=== PATIENT | male | born 1955 | race Caucasian/White ===

== ENCOUNTER 2016-06-22 00:44 | Inpatient (IN) | payer OTHER ==
[~2016-06-22] VITALS: Ht 180.3 cm; Wt 96.2 kg
[~2016-06-22 00:44] MED LIST: AMBIEN5 MG PO; AMLODIPINE BESYL5 MG PO; ANTI-ITCH28 GM TP; ASPIR 8181 M1 PO; ASPIRIN81 M1 PO; COLACE100 MG PO; COUMADIN10 MG PO; COUMADIN5 MG PO; CYANOCOBALAM1000 MCG PO; GLUCOPHAGE1000 MG PO; GLYBURIDE5 MG PO; KLOR-CON M2020 MEQ PO; KOMBIGLYZE XR1 EAC1 PO; LIPITOR20 MG PO; LISINOPRIL10 MG PO; LISINOPRIL5 MG PO; LO-DOSE ASPIRIN81 M1 PO; LO-DOSE ASPIRIN81 M2 PO; LOMOTIL TABLET1 EACH PO; LOPRESSOR25 MG PO; LYRICA100 MG PO; LYRICA150 MG PO; METFORMIN HCL1000 MG PO; METOPROLOL TART25 MG PO; NIACIN500 M1 PO; NORVASC10 M1 PO; NORVASC5 MG PO; OMEPRAZOLE20 M2 PO; OMEPRAZOLE20 MG PO; OMEPRAZOLE40 M1 PO; PERCOCET 10/1 TABLET PO; PLAVIX75 MG PO; PRILOSEC20 MG PO; RANITIDINE HCL150 MG PO; SILVADENE20 GM TP; ST. JOSEPH ASPI81 MG PO; TANZEUM30 MG/0.5 SC; VANCOCIN 250 M250 MG PO; VITAMIN B-12500 MC5 SL; VITAMIN B-6100 MG PO; WARFARIN SODIU2.5 MG PO; WARFARIN SODIUM5 MG PO; ZANTAC150 MG PO; ZOLPIDEM TARTRAT5 MG PO
[2016-06-22 01:38] LABS: HEMATOCRIT 27.6 % (38.0-50.0); MCH 24.6 PG (29.0-34.0); MCHC 30.8 G/DL (30.0-36.0); RBC DIS.WIDTH-CV 20.3 % (11.8-14.6); RED BLOOD COUNT 3.45 M/uL (4.00-5.50)
[2016-06-22 01:41] LABS: PLATELET COUNT 223 K/uL (156-360); WHITE BLOOD COUNT 6.1 K/uL (4.1-10.2)
[2016-06-22 01:47] LABS: CHLORIDE 105 mEq/L (99-109); POTASSIUM 3.6 mEq/L (3.7-5.4); SODIUM 138 mEq/L (136-147)
[2016-06-22 01:48] LABS: INTER. NORMALIZED RATIO 1.1; PROTHROMBIN TIME 11.4 (9.2-11.2)
[2016-06-22 01:49] LABS: GLUCOSE 148 mg/dL (70-99)
[2016-06-22 01:50] LABS: ANION GAP 14 MEQ/L (2-14)
[2016-06-22 01:51] LABS: TOTAL BILIRUBIN 0.8 mg/dL (0.0-1.0)
[2016-06-22 01:52] LABS: ALKALINE PHOSPHATASE 91 IU/L (3-129)
[2016-06-22 01:53] LABS: GFR ESTIMATE (CALCULATED) > 59 mL/min/
[2016-06-22 01:54] LABS: DIRECT BILIRUBIN 0.3 mg/dL (0.0-0.3); UREA NITROGEN (BUN) 13 mg/dL (9-23)
[2016-06-22 01:56] LABS: LIPASE 26 U/L (1.0-51.0)
[2016-06-22 05:00] VITALS: BP 112/78
[2016-06-22 05:57] LABS: HEMATOCRIT 24.3 % (38.0-50.0); MCH 25.8 PG (29.0-34.0); MCHC 31.7 G/DL (30.0-36.0); MCV 81.5 FL (86-99); RBC DIS.WIDTH-CV 19.7 % (11.8-14.6); RBC DIS.WIDTH-SD 56.5 % (39-53); RED BLOOD COUNT 2.98 M/uL (4.00-5.50)
[2016-06-22 06:06] LABS: WHITE BLOOD COUNT 4.2 K/uL (4.1-10.2)
[2016-06-22 07:10] LABS: MEAN PLAT.VOLUME 11.3 uM^3 (9.0-12.4)
[2016-06-22 07:13] LABS: PLATELET COUNT 141 K/uL (156-360)
[2016-06-22 07:50] VITALS: BP 113/74
[2016-06-22 13:17] LABS: POINT-OF-CARE METER ID UU13113747
[2016-06-22 13:30] LABS: HEMATOCRIT 25.9 % (38.0-50.0); MCH 26.2 PG (29.0-34.0); MCV 81.7 FL (86-99); MEAN PLAT.VOLUME 10.3 uM^3 (9.0-12.4); PLATELET COUNT 117 K/uL (156-360); RBC DIS.WIDTH-CV 18.5 % (11.8-14.6); RED BLOOD COUNT 3.17 M/uL (4.00-5.50); WHITE BLOOD COUNT 4.1 K/uL (4.1-10.2)
[2016-06-22 17:07] LABS: POINT-OF-CARE METER ID UU13113725
[2016-06-22 17:17] LABS: HEMATOCRIT 25.1 % (38.0-50.0); MCH 26.1 PG (29.0-34.0); MCHC 32.3 G/DL (30.0-36.0); RBC DIS.WIDTH-CV 18.8 % (11.8-14.6); RBC DIS.WIDTH-SD 55.6 % (39-53); WHITE BLOOD COUNT 4.1 K/uL (4.1-10.2)
[2016-06-22 17:22] LABS: MEAN PLAT.VOLUME 10.8 uM^3 (9.0-12.4); PLATELET COUNT 101 K/uL (156-360)
[2016-06-22 19:01] VITALS: BP 101/68
[2016-06-22 21:03] LABS: POINT-OF-CARE METER ID UU13113725
[2016-06-22 23:20] VITALS: BP 106/58
[2016-06-23] VITALS (11 sets, daily range): BP systolic 91–115; BP diastolic 61–73
[2016-06-23 04:26] LABS: HEMATOCRIT 23.6 % (38.0-50.0); MCH 26.1 PG (29.0-34.0); MCHC 31.4 G/DL (30.0-36.0); MCV 83.1 FL (86-99); MEAN PLAT.VOLUME 10.2 uM^3 (9.0-12.4); PLATELET COUNT 114 K/uL (156-360); RBC DIS.WIDTH-CV 18.7 % (11.8-14.6); RBC DIS.WIDTH-SD 53.9 % (39-53); RED BLOOD COUNT 2.84 M/uL (4.00-5.50); WHITE BLOOD COUNT 3.8 K/uL (4.1-10.2)
[2016-06-23 04:37] LABS: CHLORIDE 110 mEq/L (99-109); POTASSIUM 4.3 mEq/L (3.7-5.4); SODIUM 138 mEq/L (136-147)
[2016-06-23 04:39] LABS: GLUCOSE 112 mg/dL (70-99)
[2016-06-23 04:40] LABS: ANION GAP 5 MEQ/L (2-14)
[2016-06-23 04:43] LABS: GFR ESTIMATE (CALCULATED) > 59 mL/min/
[2016-06-23 04:44] LABS: UREA NITROGEN (BUN) 10 mg/dL (9-23)
[2016-06-23 11:54] LABS: POINT-OF-CARE METER ID UU13113725
[2016-06-23 16:48] LABS: HEMATOCRIT 26.1 % (38.0-50.0); MCH 26.8 PG (29.0-34.0); MCHC 32.6 G/DL (30.0-36.0); MCV 82.3 FL (86-99); MEAN PLAT.VOLUME 9.3 uM^3 (9.0-12.4); PLATELET COUNT 93 K/uL (156-360); RBC DIS.WIDTH-CV 18.4 % (11.8-14.6); RBC DIS.WIDTH-SD 55.2 % (39-53); RED BLOOD COUNT 3.17 M/uL (4.00-5.50); WHITE BLOOD COUNT 4.7 K/uL (4.1-10.2)
[2016-06-24 05:34] LABS: HEMATOCRIT 28.7 % (38.0-50.0); MCH 27.2 PG (29.0-34.0); MCHC 32.1 G/DL (30.0-36.0); MCV 84.9 FL (86-99); PLATELET COUNT 118 K/uL (156-360); RBC DIS.WIDTH-CV 18.6 % (11.8-14.6); RBC DIS.WIDTH-SD 55.8 % (39-53); RED BLOOD COUNT 3.38 M/uL (4.00-5.50); WHITE BLOOD COUNT 4.5 K/uL (4.1-10.2)
[2016-06-24 05:50] LABS: GFR ESTIMATE (CALCULATED) > 59 mL/min/
[2016-06-24 05:51] LABS: UREA NITROGEN (BUN) 7 mg/dL (9-23)
[2016-06-24 08:56] VITALS: BP 117/79
[2016-06-24 11:41] LABS: POINT-OF-CARE METER ID UU13113725
[2016-06-24 16:15] VITALS: BP 121/70
[2016-06-24 16:26] LABS: POINT-OF-CARE METER ID UU13113725
[2016-06-24 16:53] LABS: HEMATOCRIT 30.1 % (38.0-50.0); MCH 27.2 PG (29.0-34.0); MCHC 31.9 G/DL (30.0-36.0); MCV 85.3 FL (86-99); MEAN PLAT.VOLUME 10.9 uM^3 (9.0-12.4); PLATELET COUNT 105 K/uL (156-360); RBC DIS.WIDTH-CV 18.8 % (11.8-14.6); RBC DIS.WIDTH-SD 58.1 % (39-53); RED BLOOD COUNT 3.53 M/uL (4.00-5.50); WHITE BLOOD COUNT 5.1 K/uL (4.1-10.2)
[2016-06-24 22:55] VITALS: BP 112/71
[2016-06-25 05:32] LABS: POINT-OF-CARE METER ID UU13113725
[2016-06-25 05:51] LABS: HEMATOCRIT 29.7 % (38.0-50.0); MCH 27.2 PG (29.0-34.0); MCV 85.1 FL (86-99); MEAN PLAT.VOLUME 10.2 uM^3 (9.0-12.4); PLATELET COUNT 101 K/uL (156-360); RBC DIS.WIDTH-CV 19.1 % (11.8-14.6); RBC DIS.WIDTH-SD 58.6 % (39-53); RED BLOOD COUNT 3.49 M/uL (4.00-5.50); WHITE BLOOD COUNT 4.4 K/uL (4.1-10.2)
[2016-06-25 06:14] LABS: ANION GAP 6 MEQ/L (2-14); CHLORIDE 106 MEQ/L (99-109); GFR ESTIMATE (CALCULATED) > 59 mL/min/; GLUCOSE 127 mg/dL (70-99); SAMPLE HEMOLYSIS CHECK 0; SAMPLE ICTERIC CHECK 0; SAMPLE LIPEMIA CHECK 0; SODIUM 138 MEQ/L (136-147); UREA NITROGEN (BUN) 5 mg/dL (9-23)
[2016-06-25 08:00] VITALS: BP 121/83
[2016-06-25 16:13] LABS: HEMATOCRIT 30.1 % (38.0-50.0); MCH 26.8 PG (29.0-34.0); MCHC 31.9 G/DL (30.0-36.0); MCV 84.1 FL (86-99); MEAN PLAT.VOLUME 9.8 uM^3 (9.0-12.4); PLATELET COUNT 99 K/uL (156-360); RBC DIS.WIDTH-CV 18.9 % (11.8-14.6); RBC DIS.WIDTH-SD 57.8 % (39-53); RED BLOOD COUNT 3.58 M/uL (4.00-5.50); WHITE BLOOD COUNT 5.7 K/uL (4.1-10.2)
[2016-06-25 17:03] VITALS: BP 124/68
[2016-06-25 23:03] VITALS: BP 116/82
[2016-06-26 08:52] VITALS: BP 105/67
[2016-06-26 16:18] VITALS: BP 92/60
[2016-06-26 20:37] VITALS: BP 114/74
[2016-06-26 22:15] VITALS: BP 102/67
== END 2016-06-26 23:33 | disposition short-term general hospital (02) | DRG 299 ==
LOC: EME 00:44 → EDOF 03:32 → 5EAST 03:32
PROVIDERS: Emergency Medicine; Internal Medicine; Specialist
PROC: 30233N1 Transfusion of Nonautologous Red Blood Cells into Peripheral Vein, Percutaneous Approach (ICD-10-PCS; principal; 2016-06-22)
DX: I86.8 Varicose veins of other specified sites (principal); I81 Portal vein thrombosis; K92.2 Gastrointestinal hemorrhage, unspecified; D62 Acute posthemorrhagic anemia; C18.9 Malignant neoplasm of colon, unspecified; K92.1 Melena; K76.6 Portal hypertension; I82.532 Chronic embolism and thrombosis of left popliteal vein; C78.6 Secondary malignant neoplasm of retroperitoneum and peritoneum; C20 Malignant neoplasm of rectum; C78.7 Secondary malignant neoplasm of liver and intrahepatic bile duct; C78.00 Secondary malignant neoplasm of unspecified lung; E83.51 Hypocalcemia; F17.210 Nicotine dependence, cigarettes, uncomplicated; Z93.3 Colostomy status; K74.60 Unspecified cirrhosis of liver; J44.9 Chronic obstructive pulmonary disease, unspecified; R91.1 Solitary pulmonary nodule; I10 Essential (primary) hypertension; I25.10 Atherosclerotic heart disease of native coronary artery without angina pectoris; E11.9 Type 2 diabetes mellitus without complications; E66.9 Obesity, unspecified; D69.6 Thrombocytopenia, unspecified; D63.0 Anemia in neoplastic disease; I48.91 Unspecified atrial fibrillation; E87.6 Hypokalemia
CPT/HCPCS: 71010; 74177; 78278; 80048; 80076; 82140; 82565; 82948; 83605; 83690; 84520; 85027; 85610; 85730; 86850; 86900; 86901; 86920; 87040; 99281; 99285; A9512; A9560; C9113; J1815; J2060; J2354; J2543; J7030; J7050; P9016

== ENCOUNTER 2016-07-24 13:51 | Emergency (ER) | payer OTHER ==
[~2016-07-24] VITALS: Ht 180.3 cm; Wt 84.8 kg
[~2016-07-24 13:51] MED LIST changes: +AMLODIPINE-OLM1 EACH PO; +KOMBIGLYZE XR1 EACH PO; +LASIX20 MG PO; +NADOLOL20 MG PO; +SPIRONOLACTONE50 MG PO
[2016-07-24 15:46] LABS: HEMATOCRIT 30.1 % (38.0-50.0); MCH 25.3 PG (29.0-34.0); MCHC 31.6 G/DL (30.0-36.0); MCV 80.1 FL (86-99); MEAN PLAT.VOLUME 9.8 uM^3 (9.0-12.4); PLATELET COUNT 131 K/uL (156-360); RBC DIS.WIDTH-CV 18.9 % (11.8-14.6); RBC DIS.WIDTH-SD 51.9 % (39-53); RED BLOOD COUNT 3.76 M/uL (4.00-5.50); WHITE BLOOD COUNT 2.9 K/uL (4.1-10.2)
[2016-07-24 15:54] LABS: CHLORIDE 104 mEq/L (99-109); POTASSIUM 3.6 mEq/L (3.7-5.4); SODIUM 137 mEq/L (136-147)
[2016-07-24 15:56] LABS: GLUCOSE 118 mg/dL (70-99)
[2016-07-24 15:57] LABS: ANION GAP 10 MEQ/L (2-14)
[2016-07-24 15:58] LABS: TOTAL BILIRUBIN 0.8 mg/dL (0.0-1.0)
[2016-07-24 16:00] LABS: ALKALINE PHOSPHATASE 117 IU/L (3-129); GFR ESTIMATE (CALCULATED) > 59 mL/min/
[2016-07-24 16:01] LABS: UREA NITROGEN (BUN) 9 mg/dL (9-23)
[2016-07-24 16:03] LABS: LIPASE 35 U/L (1.0-51.0)
[2016-07-24 18:20] VITALS: BP 127/85
[2016-08-16] MEDS ORDERED: NADOLOL20 MG PO (09:15)
== END 2016-07-24 18:38 | disposition home or self-care (01) ==
LOC: EME 13:51
PROVIDERS: Emergency Medicine
DX: E86.0 Dehydration (principal); C19 Malignant neoplasm of rectosigmoid junction; C78.7 Secondary malignant neoplasm of liver and intrahepatic bile duct; C78.00 Secondary malignant neoplasm of unspecified lung; E11.9 Type 2 diabetes mellitus without complications; I25.2 Old myocardial infarction; K21.9 Gastro-esophageal reflux disease without esophagitis; Z95.1 Presence of aortocoronary bypass graft; F17.200 Nicotine dependence, unspecified, uncomplicated
CPT/HCPCS: 80053; 83690; 85027; 99281; 99285; J7030

== ENCOUNTER → 2017-04-06 | Outpatient (CLI) | payer OTHER ==
[~2017-04-06] VITALS: Ht 180.3 cm; Wt 86.8 kg
[~2017-04-06] MED LIST changes: +ALLEGRA60 MG PO; +LACTULOSE10 GM/151 PO; +METFORMIN HCL500 M4 PO
== END | disposition home or self-care (01) ==
LOC: RAD 13:05
PROC: 0W9G3ZZ Drainage of Peritoneal Cavity, Percutaneous Approach (ICD-10-PCS; principal; 2017-04-06)
DX: R18.8 Other ascites (principal)
CPT/HCPCS: 49083

== ENCOUNTER 2017-04-25 17:22 | Emergency (ER) | payer OTHER ==
[~2017-04-25] VITALS: Ht 180.3 cm; Wt 87.5 kg
[2017-04-25 19:02] LABS: HEMATOCRIT 32.9 % (38.0-50.0); MCHC 33.4 G/DL (30.0-36.0); MCV 86.8 FL (86-99); MEAN PLAT.VOLUME 10.2 uM^3 (9.0-12.4); RBC DIS.WIDTH-CV 19.9 % (11.8-14.6); RBC DIS.WIDTH-SD 61.1 % (39-53); RED BLOOD COUNT 3.79 M/uL (4.00-5.50); WHITE BLOOD COUNT 4.7 K/uL (4.1-10.2)
[2017-04-25 19:05] LABS: PLATELET COUNT 156 K/uL (156-360)
[2017-04-25 19:13] LABS: INTER. NORMALIZED RATIO 1.2; PROTHROMBIN TIME 13.1 SEC (10.2-12.9)
[2017-04-25 19:22] LABS: CHLORIDE 103 mEq/L (99-109); SODIUM 132 mEq/L (136-147)
[2017-04-25 19:24] LABS: GLUCOSE 157 mg/dL (70-99)
[2017-04-25 19:25] LABS: ANION GAP 7 MEQ/L (2-14)
[2017-04-25 19:26] LABS: TOTAL BILIRUBIN 1.2 mg/dL (0.0-1.0)
[2017-04-25 19:27] LABS: ALKALINE PHOSPHATASE 166 IU/L (3-129)
[2017-04-25 19:28] LABS: GFR ESTIMATE (CALCULATED) > 59 mL/min/
[2017-04-25 19:29] LABS: UREA NITROGEN (BUN) 14 mg/dL (9-23)
[2017-04-25 21:34] VITALS: BP 110/74
== END 2017-04-25 21:35 | disposition home or self-care (01) ==
LOC: EME 17:22
PROVIDERS: Emergency Medicine
DX: Z43.3 Encounter for attention to colostomy (principal); I86.8 Varicose veins of other specified sites; C78.7 Secondary malignant neoplasm of liver and intrahepatic bile duct; C78.00 Secondary malignant neoplasm of unspecified lung; Z85.038 Personal history of other malignant neoplasm of large intestine; K74.60 Unspecified cirrhosis of liver; I10 Essential (primary) hypertension; E11.9 Type 2 diabetes mellitus without complications; K21.9 Gastro-esophageal reflux disease without esophagitis; I25.2 Old myocardial infarction; Z95.1 Presence of aortocoronary bypass graft; F17.200 Nicotine dependence, unspecified, uncomplicated; Z92.21 Personal history of antineoplastic chemotherapy; Z79.84 Long term (current) use of oral hypoglycemic drugs; Z88.1 Allergy status to other antibiotic agents
CPT/HCPCS: 80053; 85027; 85610; 86850; 86900; 86901; 99281; 99284; J7030

== ENCOUNTER → 2017-04-27 | Outpatient (CLI) | payer OTHER | END | disposition home or self-care (01) | LOC: RAD 12:53 | PROC: 0W9G3ZZ Drainage of Peritoneal Cavity, Percutaneous Approach (ICD-10-PCS; principal; 2017-04-27) | DX: R18.8 Other ascites (principal) | CPT/HCPCS: 49083 ==

== ENCOUNTER → 2017-05-11 | Outpatient (CLI) | payer OTHER | END | disposition home or self-care (01) | LOC: RAD 08:20 | PROC: 0W9G3ZZ Drainage of Peritoneal Cavity, Percutaneous Approach (ICD-10-PCS; principal; 2017-05-11) | DX: R18.8 Other ascites (principal) | CPT/HCPCS: 49083 ==

== ENCOUNTER → 2017-05-25 | Outpatient (CLI) | payer OTHER ==
[2017-05-25 14:12] LABS: TYPE OF FLUID PARACENTESIS
[2017-05-25 14:56] LABS: APPEARANCE CLEAR-COLORLESS; BODY FLUID EOSINOPHILS 14 % (0-25); BODY FLUID RBC'S < 1000 /MM^3 (0-100); BODY FLUID WBC'S 69 /MM^3 (0-500); MONONUCLEAR WBC'S 70 %; POLYNUCLEAR WBC'S 16 % (0-25)
[2017-05-25 15:38] LABS: BODY FLUID GLUCOSE 134 MG/DL; BODY FLUID LDH 46 IU/L; BODY FLUID PROTEIN < 3.0 G/DL
[2017-05-27 04:08] LABS: BODY FLUID PH 8.1 (())
== END | disposition home or self-care (01) ==
LOC: RAD 12:46
PROVIDERS: Specialist
PROC: 0W9G3ZZ Drainage of Peritoneal Cavity, Percutaneous Approach (ICD-10-PCS; principal; 2017-05-25)
DX: R18.8 Other ascites (principal)
CPT/HCPCS: 49083; 82945; 83615 91; 83986 90; 84157; 87070; 87205; 88108; 89051; P9047

== ENCOUNTER → 2017-06-05 | Outpatient (CLI) | payer OTHER ==
[~2017-06-05] MED LIST changes: +OXYCODONE HCL15 MG PO
== END | disposition home or self-care (01) ==
LOC: RAD 06-02 08:15
PROC: 0W9G3ZZ Drainage of Peritoneal Cavity, Percutaneous Approach (ICD-10-PCS; principal; 2017-06-05)
DX: R18.8 Other ascites (principal)
CPT/HCPCS: 49083; P9047

== ENCOUNTER → 2017-06-08 | Outpatient (CLI) | payer OTHER | END | disposition home or self-care (01) | LOC: RAD 08:19 | PROC: 0W9G3ZZ Drainage of Peritoneal Cavity, Percutaneous Approach (ICD-10-PCS; principal; 2017-06-08) | DX: R18.8 Other ascites (principal) | CPT/HCPCS: 49083; P9047 ==

== ENCOUNTER → 2017-06-12 | Outpatient (CLI) | payer OTHER ==
[~2017-06-12] MED LIST changes: +CORGARD40 MG PO; +VENTOLIN HFA18 GM IH; +XIFAXAN550 MG PO; +ZOFRAN4 MG PO
== END | disposition home or self-care (01) ==
LOC: RAD 08:22
PROC: 0W9G3ZZ Drainage of Peritoneal Cavity, Percutaneous Approach (ICD-10-PCS; principal; 2017-06-12)
DX: R18.8 Other ascites (principal)
CPT/HCPCS: 49083; P9047

== ENCOUNTER 2017-06-15 11:58 | Inpatient (IN) | payer OTHER ==
[~2017-06-15] VITALS: Ht 180.3 cm; Wt 72.7 kg
[~2017-06-15 11:58] MED LIST changes: -VENTOLIN HFA18 GM IH; -XIFAXAN550 MG PO; -ZOFRAN4 MG PO
[2017-06-15 12:38] LABS: HEMATOCRIT 40.5 % (38.0-50.0); HEMOGLOBIN 13.6 G/DL (12.5-16.6); MCH 26.6 PG (29.0-34.0); MCHC 33.6 G/DL (30.0-36.0); PLATELET COUNT 141 K/uL (156-360); RBC DIS.WIDTH-CV 18.5 % (11.8-14.6); RED BLOOD COUNT 5.12 M/uL (4.00-5.50); WHITE BLOOD COUNT 3.6 K/uL (4.1-10.2)
[2017-06-15 12:44] LABS: MCV 79.1 FL (86-99)
[2017-06-15 12:46] LABS: ALBUMIN 3.7 g/dL (3.2-4.8); CHLORIDE 98 mEq/L (99-109); POTASSIUM 5.5 mEq/L (3.7-5.4); SODIUM 128 mEq/L (136-147)
[2017-06-15 12:48] LABS: GLUCOSE 160 mg/dL (70-99); TOTAL PROTEIN 6.6 g/dL (6.4-8.3)
[2017-06-15 12:52] LABS: ALKALINE PHOSPHATASE 141 IU/L (3-129); CREATININE 0.9 mg/dL (0.6-1.3); GFR ESTIMATE (CALCULATED) > 59 mL/min/ (58.99-99999)
[2017-06-15 12:53] LABS: UREA NITROGEN (BUN) 33 mg/dL (9-23)
[2017-06-15 12:54] LABS: AST (GOT) 22 IU/L (2-34)
[2017-06-15 12:55] LABS: ALT (GPT) 16 IU/L (3-49)
[2017-06-15 14:34] LABS: MAGNESIUM 1.9 mg/dL (1.3-2.7)
[2017-06-15 14:42] LABS: LIPASE 6 U/L (1.0-51.0)
[2017-06-15 14:43] LABS: TROP-I INTERPRETATION NEGATIVE; TROPONIN-I < 0.01 ng/mL (0.0-0.30)
[2017-06-15 15:43] LABS: APPEARANCE CLEAR ((CLEAR)); BILIRUBIN NEGATIVE; BLOOD NEGATIVE; COLOR AMBER ((YELLOW)); GLUCOSE (STRIP) NEGATIVE; KETONES NEGATIVE; LEUKOCYTES NEGATIVE; NITRITE NEGATIVE; PROTEIN (STRIP) 30; SPECIFIC GRAVITY 1.029 (1.000-1.030); UCUL ADDED? NO; UROBILINOGEN 0.2 MG/DL (0.2-1.0)
[2017-06-15] MEDS ORDERED: XIFAXAN550 MG PO (17:34)
[2017-06-15] MEDS ORDERED: VENTOLIN HFA18 GM IH (17:34)
[2017-06-15] MEDS ORDERED: ZOFRAN4 MG PO (17:35)
[2017-06-16 02:09] VITALS: BP 119/73
[2017-06-16 07:24] LABS: BASOPHIL (%) 0.3 % (0-1); EOSINOPHIL (%) 7.3 % (0-5); EOSINOPHIL COUNT 0.2 K/uL (0-0.3); IMMATURE GRANULOCYTE (%) 0.3 % (0.0-0.7); LYMPHOCYTE (%) 19.8 % (15-42); LYMPHOCYTE COUNT 0.6 K/uL (1.0-2.8); MCH 26.2 PG (29.0-34.0); MCHC 32.4 G/DL (30.0-36.0); MONOCYTE COUNT 0.5 K/uL (0-0.8); NEUTROPHIL (%) 55.3 % (45-76); NEUTROPHIL COUNT 1.6 K/uL (1.8-6.4); PLATELET COUNT 107 K/uL (156-360); RBC DIS.WIDTH-CV 18.1 % (11.8-14.6); WHITE BLOOD COUNT 2.9 K/uL (4.1-10.2)
[2017-06-16 08:22] VITALS: BP 102/68
[2017-06-16 11:37] VITALS: BP 110/64
[2017-06-16 14:46] LABS: CHLORIDE 102 MEQ/L (99-109); POTASSIUM 4.8 MEQ/L (3.7-5.4); SODIUM 131 MEQ/L (136-147)
[2017-06-16 14:52] LABS: CREATININE 0.8 MG/DL (0.6-1.3); GFR ESTIMATE (CALCULATED) > 59 mL/min/ (58.99-99999); UREA NITROGEN (BUN) 25 mg/dL (9-23)
[2017-06-16 14:55] LABS: GLUCOSE 115 mg/dL (70-99)
[2017-06-16 15:30] VITALS: BP 112/70
[2017-06-16 19:30] VITALS: BP 140/60
[2017-06-16 23:22] VITALS: BP 80/53
[2017-06-17] VITALS: BP 100/62
[2017-06-17 04:18] VITALS: BP 101/67
[2017-06-17 07:46] LABS: C DIFF TOXIN NEGATIVE (NEGATIVE)
[2017-06-17 07:56] VITALS: BP 120/70
[2017-06-17 11:50] VITALS: BP 126/71
[2017-06-17 20:23] VITALS: BP 110/64
[2017-06-17 23:37] VITALS: BP 100/61
[2017-06-18 04:15] VITALS: BP 101/64
[2017-06-18 06:05] LABS: HEMATOCRIT 32.3 % (38.0-50.0); HEMOGLOBIN 10.2 G/DL (12.5-16.6); MCH 26.1 PG (29.0-34.0); MCHC 31.6 G/DL (30.0-36.0); MCV 82.6 FL (86-99); PLATELET COUNT 108 K/uL (156-360); RBC DIS.WIDTH-CV 17.9 % (11.8-14.6); RBC DIS.WIDTH-SD 54.1 % (39-53); RED BLOOD COUNT 3.91 M/uL (4.00-5.50); WHITE BLOOD COUNT 4.4 K/uL (4.1-10.2)
[2017-06-18 06:44] LABS: ALBUMIN 2.6 G/DL (3.2-4.8); ALKALINE PHOSPHATASE 130 IU/L (3-129); ALT (GPT) 12 IU/L (3-49); AST (GOT) 25 IU/L (2-34); CHLORIDE 102 MEQ/L (99-109); CREATININE 0.8 MG/DL (0.6-1.3); GFR ESTIMATE (CALCULATED) > 59 mL/min/ (58.99-99999); GLUCOSE 128 mg/dL (70-99); POTASSIUM 4.5 MEQ/L (3.7-5.4); SODIUM 126 MEQ/L (136-147); TOTAL BILIRUBIN 0.6 MG/DL (0.0-1.0); TOTAL PROTEIN 4.8 G/DL (6.4-8.3); UREA NITROGEN (BUN) 13 mg/dL (9-23)
[2017-06-18 07:23] VITALS: BP 136/92
[2017-06-18 07:54] VITALS: BP 120/56
[2017-06-18 11:37] VITALS: BP 113/62
[2017-06-18 20:15] VITALS: BP 92/61
[2017-06-18 23:58] VITALS: BP 131/80
[2017-06-19 00:07] VITALS: BP 100/72
[2017-06-19 04:05] VITALS: BP 92/64
[2017-06-19 05:50] LABS: HEMATOCRIT 33.1 % (38.0-50.0); HEMOGLOBIN 10.6 G/DL (12.5-16.6); MCH 26.3 PG (29.0-34.0); MCV 82.1 FL (86-99); PLATELET COUNT 113 K/uL (156-360); RBC DIS.WIDTH-CV 18.2 % (11.8-14.6); RBC DIS.WIDTH-SD 54.2 % (39-53); RED BLOOD COUNT 4.03 M/uL (4.00-5.50)
[2017-06-19 07:06] LABS: ALBUMIN 2.7 G/DL (3.2-4.8); ALKALINE PHOSPHATASE 157 IU/L (3-129); ALT (GPT) 11 IU/L (3-49); AST (GOT) 24 IU/L (2-34); CHLORIDE 101 MEQ/L (99-109); CREATININE 0.7 MG/DL (0.6-1.3); GFR ESTIMATE (CALCULATED) > 59 mL/min/ (58.99-99999); GLUCOSE 124 mg/dL (70-99); POTASSIUM 4.4 MEQ/L (3.7-5.4); SODIUM 129 MEQ/L (136-147); TOTAL BILIRUBIN 0.6 MG/DL (0.0-1.0); TOTAL PROTEIN 4.6 G/DL (6.4-8.3); UREA NITROGEN (BUN) 10 mg/dL (9-23)
[2017-06-19 08:06] VITALS: BP 92/72
[2017-06-19 11:46] VITALS: BP 103/73
[2017-06-19 15:57] VITALS: BP 117/71
[2017-06-19 20:02] VITALS: BP 116/77
[2017-06-19 20:55] LABS: CHLORIDE 101 MEQ/L (99-109); POTASSIUM 5.2 MEQ/L (3.7-5.4); SODIUM 129 MEQ/L (136-147)
[2017-06-19 21:00] LABS: CREATININE 0.8 MG/DL (0.6-1.3); GFR ESTIMATE (CALCULATED) > 59 mL/min/ (58.99-99999); GLUCOSE 159 mg/dL (70-99); UREA NITROGEN (BUN) 9 mg/dL (9-23)
[2017-06-20] VITALS (7 sets, daily range): BP systolic 93–113; BP diastolic 62–73
[2017-06-20 05:47] LABS: BASOPHIL (%) 1.1 % (0-1); EOSINOPHIL COUNT 0.6 K/uL (0-0.3); HEMATOCRIT 34.1 % (38.0-50.0); HEMOGLOBIN 10.7 G/DL (12.5-16.6); IMMATURE GRANULOCYTE (%) 0.5 % (0.0-0.7); LYMPHOCYTE (%) 16.2 % (15-42); LYMPHOCYTE COUNT 0.6 K/uL (1.0-2.8); MCH 25.5 PG (29.0-34.0); MCHC 31.4 G/DL (30.0-36.0); MCV 81.4 FL (86-99); MONOCYTE (%) 24.5 % (3-12); MONOCYTE COUNT 0.9 K/uL (0-0.8); NEUTROPHIL (%) 40.7 % (45-76); NEUTROPHIL COUNT 1.5 K/uL (1.8-6.4); PLATELET COUNT 131 K/uL (156-360); RBC DIS.WIDTH-CV 18.4 % (11.8-14.6); RBC DIS.WIDTH-SD 54.3 % (39-53); RED BLOOD COUNT 4.19 M/uL (4.00-5.50); WHITE BLOOD COUNT 3.7 K/uL (4.1-10.2)
[2017-06-20 06:14] LABS: ALBUMIN 2.8 G/DL (3.2-4.8); ALKALINE PHOSPHATASE 178 IU/L (3-129); ALT (GPT) 13 IU/L (3-49); AST (GOT) 30 IU/L (2-34); CHLORIDE 97 MEQ/L (99-109); CREATININE 0.8 MG/DL (0.6-1.3); GFR ESTIMATE (CALCULATED) > 59 mL/min/ (58.99-99999); GLUCOSE 127 mg/dL (70-99); POTASSIUM 4.4 MEQ/L (3.7-5.4); SODIUM 126 MEQ/L (136-147); TOTAL BILIRUBIN 0.7 MG/DL (0.0-1.0); TOTAL PROTEIN 4.9 G/DL (6.4-8.3); UREA NITROGEN (BUN) 9 mg/dL (9-23)
[2017-06-21 08:08] VITALS: BP 94/68
[2017-06-21 09:15] LABS: CHLORIDE 99 MEQ/L (99-109); CREATININE 0.7 MG/DL (0.6-1.3); GFR ESTIMATE (CALCULATED) > 59 mL/min/ (58.99-99999); GLUCOSE 115 mg/dL (70-99); POTASSIUM 4.6 MEQ/L (3.7-5.4); SODIUM 129 MEQ/L (136-147); UREA NITROGEN (BUN) 10 mg/dL (9-23)
[2017-06-21 10:03] LABS: INTER. NORMALIZED RATIO 1.2
[2017-06-21 10:05] LABS: PTT 41.7 SEC (25-37)
[2017-06-21 13:26] VITALS: BP 109/71
[2017-06-21 16:22] VITALS: BP 109/70
[2017-06-21] MEDS ORDERED: FLAGYL500 MG PO (18:14)
== END 2017-06-21 19:04 | disposition home or self-care (01) | DRG 392 ==
LOC: EME 11:58 → 3EAST 19:27 → EDOF 19:27 → ENRESERV 19:40 → 3EAST 06-16 02:00 → ENRESERVTM 06-16 19:35 → ENRESERV 06-19 17:33 → 5EAST 06-19 23:47
PROVIDERS: Family Medicine; Internal Medicine; Physician Assistant Medical; Radiology Diagnostic Radiology
PROC: 0W9G3ZZ Drainage of Peritoneal Cavity, Percutaneous Approach (ICD-10-PCS; principal; 2017-06-21)
DX: K52.9 Noninfective gastroenteritis and colitis, unspecified (principal); N17.9 Acute kidney failure, unspecified; C78.6 Secondary malignant neoplasm of retroperitoneum and peritoneum; C78.7 Secondary malignant neoplasm of liver and intrahepatic bile duct; C78.02 Secondary malignant neoplasm of left lung; C77.8 Secondary and unspecified malignant neoplasm of lymph nodes of multiple regions; C20 Malignant neoplasm of rectum; R18.0 Malignant ascites; E87.1 Hypo-osmolality and hyponatremia; K74.60 Unspecified cirrhosis of liver; F17.210 Nicotine dependence, cigarettes, uncomplicated; I10 Essential (primary) hypertension; I25.10 Atherosclerotic heart disease of native coronary artery without angina pectoris; K21.9 Gastro-esophageal reflux disease without esophagitis; E87.5 Hyperkalemia; E11.9 Type 2 diabetes mellitus without complications; D70.9 Neutropenia, unspecified; Z93.3 Colostomy status; Z86.718 Personal history of other venous thrombosis and embolism; Z79.51 Long term (current) use of inhaled steroids; Z95.1 Presence of aortocoronary bypass graft; Z84.1 Family history of disorders of kidney and ureter; Z80.42 Family history of malignant neoplasm of prostate
CPT/HCPCS: 49083; 74177; 80048; 80048 91; 80053; 81003; 82948; 83690; 83735; 84484; 85025; 85027; 85610; 85730; 87086; 87493; 93005; 99202; 99281; 99284; J0744; J1170; J1644; J1815; J2405; J2543; J3370; J7030; P9047; S0030

== ENCOUNTER → 2017-06-29 | Outpatient (CLI) | payer OTHER ==
[~2017-06-29] MED LIST changes: +FLAGYL500 MG PO; +VENTOLIN HFA18 GM IH; +XIFAXAN550 MG PO; +ZOFRAN4 MG PO
== END | disposition home or self-care (01) ==
LOC: RAD 13:03
PROC: 0W9G3ZZ Drainage of Peritoneal Cavity, Percutaneous Approach (ICD-10-PCS; principal; 2017-06-29)
DX: R18.8 Other ascites (principal)
CPT/HCPCS: 49083; P9047

== ENCOUNTER → 2017-07-03 | Outpatient (CLI) | payer OTHER | END | disposition home or self-care (01) | LOC: RAD 08:26 | PROC: 0W9G3ZZ Drainage of Peritoneal Cavity, Percutaneous Approach (ICD-10-PCS; principal; 2017-07-03) | DX: R18.8 Other ascites (principal) | CPT/HCPCS: 49083 ==

== ENCOUNTER → 2017-07-07 | Outpatient (CLI) | payer OTHER ==
[2017-07-07 09:20] LABS: INTER. NORMALIZED RATIO 1.1
[2017-07-07 09:22] LABS: PTT 34.9 SEC (25-37)
[2017-07-07 09:26] LABS: HEMATOCRIT 40.7 % (38.0-50.0); HEMOGLOBIN 12.7 G/DL (12.5-16.6); MCH 25.8 PG (29.0-34.0); MCHC 31.2 G/DL (30.0-36.0); MCV 82.7 FL (86-99); PLATELET COUNT 167 K/uL (156-360); RBC DIS.WIDTH-SD 61.2 % (39-53); RED BLOOD COUNT 4.92 M/uL (4.00-5.50); WHITE BLOOD COUNT 9.7 K/uL (4.1-10.2)
== END | disposition home or self-care (01) ==
LOC: OPR 08:25 → EDSTATUS 10:00
PROVIDERS: Internal Medicine Hematology & Oncology
PROC: 0W9G30Z Drainage of Peritoneal Cavity with Drainage Device, Percutaneous Approach (ICD-10-PCS; principal; 2017-07-07)
DX: R18.8 Other ascites (principal)
CPT/HCPCS: 49406; 82948; 85027; 85610; 85730; C1729; J3010

== ENCOUNTER 2017-08-16 11:59 | Inpatient (IN) | payer OTHER ==
[~2017-08-16] VITALS: Ht 180.3 cm; Wt 74.7 kg
[2017-08-16 13:42] LABS: HEMATOCRIT 39.9 % (38.0-50.0); HEMOGLOBIN 13.7 G/DL (12.5-16.6); MCH 26.3 PG (29.0-34.0); MCHC 34.3 G/DL (30.0-36.0); MCV 76.6 FL (86-99); PLATELET COUNT 251 K/uL (156-360); RBC DIS.WIDTH-CV 22.2 % (11.8-14.6); RBC DIS.WIDTH-SD 57.7 % (39-53); RED BLOOD COUNT 5.21 M/uL (4.00-5.50); WHITE BLOOD COUNT 15.2 K/uL (4.1-10.2)
[2017-08-16 13:50] LABS: ALBUMIN 2.3 g/dL (3.2-4.8); CHLORIDE 91 mEq/L (99-109)
[2017-08-16 13:53] LABS: GLUCOSE 144 mg/dL (70-99); TOTAL PROTEIN 6.2 g/dL (6.4-8.3)
[2017-08-16 13:55] LABS: TOTAL BILIRUBIN 2.5 mg/dL (0.0-1.0)
[2017-08-16 13:56] LABS: ALKALINE PHOSPHATASE 285 IU/L (3-129); CREATININE 1.7 mg/dL (0.6-1.3); GFR ESTIMATE (CALCULATED) 44 mL/min/ (58.99-99999)
[2017-08-16 13:57] LABS: UREA NITROGEN (BUN) 40 mg/dL (9-23)
[2017-08-16 13:58] LABS: AST (GOT) 41 IU/L (2-34)
[2017-08-16 13:59] LABS: ALT (GPT) 18 IU/L (3-49)
[2017-08-16 14:03] LABS: POTASSIUM 6.9 mEq/L (3.7-5.4); SODIUM 119 mEq/L (136-147)
[2017-08-16 14:18] LABS: ABS NEUTROPHIL COUNT 12.6; ANISOCYTOSIS 3+; EOSINOPHIL ABS CT 0.2; MACROCYTES 1+; MICROCYTOSIS 1+; PLAT.SUFFICIENCY ADEQUATE
[2017-08-16 18:42] LABS: APPEARANCE SL.HAZY ((CLEAR)); BILIRUBIN NEGATIVE; BLOOD NEGATIVE; COLOR AMBER ((YELLOW)); GLUCOSE (STRIP) 150; KETONES NEGATIVE; LEUKOCYTES NEGATIVE; NITRITE NEGATIVE; PROTEIN (STRIP) 30; SPECIFIC GRAVITY 1.024 (1.000-1.030)
[2017-08-16 18:47] LABS: BACTERIA NONE SEEN /HPF; EPITHELIAL CELLS NONE SEEN /HPF; MUCUS TRACE /LPF; RED BLOOD CELLS 0-5 /HPF (0-5); UCUL ADDED? NO; WHITE BLOOD CELLS 0-5 /HPF (0-5)
[2017-08-16 21:51] VITALS: BP 137/78
[2017-08-17] VITALS (7 sets, daily range): BP systolic 99–114; BP diastolic 65–79
[2017-08-17 06:11] LABS: BASOPHIL (%) 0.2 % (0-1); EOSINOPHIL (%) 0.9 % (0-5); EOSINOPHIL COUNT 0.1 K/uL (0-0.3); HEMATOCRIT 37.9 % (38.0-50.0); HEMOGLOBIN 12.5 G/DL (12.5-16.6); IMMATURE GRANULOCYTE (%) 0.6 % (0.0-0.7); LYMPHOCYTE (%) 4.8 % (15-42); LYMPHOCYTE COUNT 0.5 K/uL (1.0-2.8); MCH 25.9 PG (29.0-34.0); MCV 78.5 FL (86-99); MONOCYTE (%) 10.2 % (3-12); MONOCYTE COUNT 1.1 K/uL (0-0.8); NEUTROPHIL (%) 83.3 % (45-76); NEUTROPHIL COUNT 9.3 K/uL (1.8-6.4); PLATELET COUNT 181 K/uL (156-360); RBC DIS.WIDTH-CV 22.3 % (11.8-14.6); RBC DIS.WIDTH-SD 58.5 % (39-53); RED BLOOD COUNT 4.83 M/uL (4.00-5.50); WHITE BLOOD COUNT 11.2 K/uL (4.1-10.2)
[2017-08-17 06:35] LABS: CHLORIDE 93 MEQ/L (99-109); CREATININE 1.6 MG/DL (0.6-1.3); GFR ESTIMATE (CALCULATED) 47 mL/min/ (58.99-99999); GLUCOSE 127 mg/dL (70-99); SODIUM 122 MEQ/L (136-147); UREA NITROGEN (BUN) 36 mg/dL (9-23)
[2017-08-17 06:38] LABS: POTASSIUM 6.6 MEQ/L (3.7-5.4)
[2017-08-17 12:35] LABS: CHLORIDE 95 MEQ/L (99-109); CREATININE 1.4 MG/DL (0.6-1.3); GFR ESTIMATE (CALCULATED) 55 mL/min/ (58.99-99999); GLUCOSE 134 mg/dL (70-99); SODIUM 125 MEQ/L (136-147); UREA NITROGEN (BUN) 37 mg/dL (9-23)
[2017-08-18 03:27] VITALS: BP 113/73
[2017-08-18 06:48] LABS: BASOPHIL (%) 0.3 % (0-1); EOSINOPHIL (%) 1.4 % (0-5); EOSINOPHIL COUNT 0.2 K/uL (0-0.3); HEMATOCRIT 38.5 % (38.0-50.0); HEMOGLOBIN 12.6 G/DL (12.5-16.6); IMMATURE GRANULOCYTE (%) 0.8 % (0.0-0.7); LYMPHOCYTE COUNT 0.7 K/uL (1.0-2.8); MCH 25.7 PG (29.0-34.0); MCHC 32.7 G/DL (30.0-36.0); MCV 78.4 FL (86-99); MONOCYTE (%) 10.5 % (3-12); MONOCYTE COUNT 1.5 K/uL (0-0.8); PLATELET COUNT 196 K/uL (156-360); RBC DIS.WIDTH-CV 22.3 % (11.8-14.6); RBC DIS.WIDTH-SD 60.3 % (39-53); RED BLOOD COUNT 4.91 M/uL (4.00-5.50); WHITE BLOOD COUNT 14.6 K/uL (4.1-10.2)
[2017-08-18 07:10] VITALS: BP 101/73
[2017-08-18 08:55] LABS: ALBUMIN 1.8 G/DL (3.2-4.8); ALKALINE PHOSPHATASE 202 IU/L (3-129); ALT (GPT) 12 IU/L (3-49); AST (GOT) 31 IU/L (2-34); CHLORIDE 93 MEQ/L (99-109); CREATININE 1.2 MG/DL (0.6-1.3); DIRECT BILIRUBIN 0.7 mg/dL (0.0-0.3); GFR ESTIMATE (CALCULATED) > 59 mL/min/ (58.99-99999); GLUCOSE 134 mg/dL (70-99); MAGNESIUM 1.8 mg/dl (1.3-2.7); PHOSPHORUS 3.5 mg/dL (2.5-4.9); POTASSIUM 5.3 MEQ/L (3.7-5.4); SODIUM 122 MEQ/L (136-147); TOTAL BILIRUBIN 1.3 MG/DL (0.0-1.0); TOTAL PROTEIN 4.5 G/DL (6.4-8.3); TRIGLYCERIDES 96 MG/DL (Normal: <150); UREA NITROGEN (BUN) 35 mg/dL (9-23)
[2017-08-18 09:01] LABS: PREALBUMIN < 3.0 mg/dL (10-40)
[2017-08-18 11:00] VITALS: BP 108/75
[2017-08-18 15:31] VITALS: BP 101/68
[2017-08-19] VITALS (7 sets, daily range): BP systolic 81–97; BP diastolic 57–77
[2017-08-20 07:00] VITALS: BP 83/57
[2017-08-20 07:40] LABS: CHLORIDE 94 MEQ/L (99-109); CREATININE 1.2 MG/DL (0.6-1.3); GFR ESTIMATE (CALCULATED) > 59 mL/min/ (58.99-99999); GLUCOSE 203 mg/dL (70-99); POTASSIUM 4.9 MEQ/L (3.7-5.4); SODIUM 120 MEQ/L (136-147); UREA NITROGEN (BUN) 42 mg/dL (9-23)
[2017-08-20 15:45] VITALS: BP 92/66
[2017-08-20 23:57] VITALS: BP 95/64
[2017-08-21 00:43] VITALS: BP 85/63
[2017-08-21 03:00] VITALS: BP 88/62
[2017-08-21 04:30] VITALS: BP 90/76
[2017-08-21 07:23] VITALS: BP 92/65
[2017-08-21 16:54] VITALS: BP 86/65
[2017-08-21 17:24] VITALS: BP 95/68
[2017-08-21 19:21] LABS: CHLORIDE 95 MEQ/L (99-109); GFR ESTIMATE (CALCULATED) > 59 mL/min/ (58.99-99999); POTASSIUM 5.2 MEQ/L (3.7-5.4); SODIUM 120 MEQ/L (136-147); UREA NITROGEN (BUN) 36 mg/dL (9-23)
[2017-08-21 19:25] LABS: GLUCOSE 119 mg/dL (70-99)
[2017-08-22] VITALS (9 sets, daily range): BP systolic 64–93; BP diastolic 44–62
[2017-08-23 02:04] VITALS: BP 83/56
[2017-08-23 07:54] LABS: CHLORIDE 94 MEQ/L (99-109); GFR ESTIMATE (CALCULATED) > 59 mL/min/ (58.99-99999); POTASSIUM 5.9 MEQ/L (3.7-5.4); SODIUM 121 MEQ/L (136-147); UREA NITROGEN (BUN) 32 mg/dL (9-23); URIC ACID 5.1 mg/dL (3.1-9.2)
[2017-08-23 07:56] LABS: GLUCOSE 216 mg/dL (70-99)
[2017-08-23 08:26] VITALS: BP 85/53
[2017-08-23 09:19] LABS: THYROTROPIN (TSH) 4.3 MIU/L (0.4-5.5)
[2017-08-23 12:28] VITALS: BP 87/66
[2017-08-23 15:41] VITALS: BP 105/65
[2017-08-23 19:48] VITALS: BP 80/50
[2017-08-23 23:39] VITALS: BP 102/68
[2017-08-24 04:18] VITALS: BP 92/60
[2017-08-24 07:00] LABS: CHLORIDE 95 MEQ/L (99-109); GFR ESTIMATE (CALCULATED) > 59 mL/min/ (58.99-99999); GLUCOSE 176 mg/dL (70-99); POTASSIUM 5.3 MEQ/L (3.7-5.4); SODIUM 124 MEQ/L (136-147); UREA NITROGEN (BUN) 30 mg/dL (9-23)
[2017-08-24 07:38] VITALS: BP 100/72
[2017-08-24 12:55] VITALS: BP 93/62
[2017-08-24 16:04] VITALS: BP 98/64
[2017-08-24 18:53] VITALS: BP 98/68
[2017-08-24 22:48] VITALS: BP 91/70
[2017-08-25 03:47] VITALS: BP 106/67
[2017-08-25 06:55] LABS: CHLORIDE 96 MEQ/L (99-109); GFR ESTIMATE (CALCULATED) > 59 mL/min/ (58.99-99999); GLUCOSE 146 mg/dL (70-99); POTASSIUM 5.4 MEQ/L (3.7-5.4); SODIUM 121 MEQ/L (136-147); UREA NITROGEN (BUN) 30 mg/dL (9-23)
[2017-08-25 07:30] VITALS: BP 91/75
[2017-08-25 11:52] VITALS: BP 101/40
[2017-08-25 16:45] VITALS: BP 113/73
[2017-08-25 17:22] LABS: ALBUMIN 2.2 G/DL (3.2-4.8); URIC ACID 4.4 mg/dL (3.1-9.2)
[2017-08-25 19:52] VITALS: BP 93/69
[2017-08-25 23:58] VITALS: BP 103/81
[2017-08-26 01:07] LABS: UR CREATININE CONCENTRATION 210.8 MG/DL
[2017-08-26 03:37] VITALS: BP 97/68
[2017-08-26 06:40] LABS: INTER. NORMALIZED RATIO 1.2
[2017-08-26 06:43] LABS: PTT 43.6 SEC (25-37)
[2017-08-26 07:06] LABS: CHLORIDE 93 MEQ/L (99-109); GFR ESTIMATE (CALCULATED) > 59 mL/min/ (58.99-99999); GLUCOSE 153 mg/dL (70-99); POTASSIUM 5.5 MEQ/L (3.7-5.4); SODIUM 121 MEQ/L (136-147); UREA NITROGEN (BUN) 35 mg/dL (9-23); URIC ACID 4.5 mg/dL (3.1-9.2)
[2017-08-26 07:20] VITALS: BP 123/83
[2017-08-26 15:47] VITALS: BP 100/68
[2017-08-26 23:50] VITALS: BP 109/75
[2017-08-27 06:39] LABS: ALBUMIN 2.2 G/DL (3.2-4.8); ALKALINE PHOSPHATASE 698 IU/L (3-129); ALT (GPT) 26 IU/L (3-49); AST (GOT) 91 IU/L (2-34); CHLORIDE 92 MEQ/L (99-109); CREATININE 1.1 MG/DL (0.6-1.3); GFR ESTIMATE (CALCULATED) > 59 mL/min/ (58.99-99999); GLUCOSE 171 mg/dL (70-99); POTASSIUM 6.8 MEQ/L (3.7-5.4); SODIUM 121 MEQ/L (136-147); TOTAL PROTEIN 5.2 G/DL (6.4-8.3); UREA NITROGEN (BUN) 39 mg/dL (9-23)
[2017-08-27 08:17] VITALS: BP 108/72
[2017-08-27 15:18] LABS: LACTATE DEHYDROGENASE 218 IU/L (20-246)
[2017-08-27 15:30] VITALS: BP 112/76
[2017-08-27 15:39] LABS: CHLORIDE 92 MEQ/L (99-109); CREATININE 1.2 MG/DL (0.6-1.3); GFR ESTIMATE (CALCULATED) > 59 mL/min/ (58.99-99999); GLUCOSE 188 mg/dL (70-99); SODIUM 120 MEQ/L (136-147); UREA NITROGEN (BUN) 40 mg/dL (9-23)
[2017-08-27 20:15] LABS: CHLORIDE 92 MEQ/L (99-109); CREATININE 1.2 MG/DL (0.6-1.3); GFR ESTIMATE (CALCULATED) > 59 mL/min/ (58.99-99999); GLUCOSE 168 mg/dL (70-99); POTASSIUM 5.7 MEQ/L (3.7-5.4); SODIUM 121 MEQ/L (136-147); UREA NITROGEN (BUN) 42 mg/dL (9-23)
[2017-08-27 23:30] VITALS: BP 103/69
[2017-08-27 23:50] LABS: CHLORIDE 96 mEq/L (99-109)
[2017-08-27 23:51] LABS: POTASSIUM 5.2 mEq/L (3.7-5.4); SODIUM 123 mEq/L (136-147)
[2017-08-27 23:52] LABS: GLUCOSE 167 mg/dL (70-99)
[2017-08-27 23:56] LABS: CREATININE 1.1 mg/dL (0.6-1.3); GFR ESTIMATE (CALCULATED) > 59 mL/min/ (58.99-99999)
[2017-08-27 23:57] LABS: UREA NITROGEN (BUN) 42 mg/dL (9-23)
[2017-08-28 06:45] VITALS: BP 117/73
[2017-08-28 07:22] LABS: ALBUMIN 2.1 G/DL (3.2-4.8); ALKALINE PHOSPHATASE 713 IU/L (3-129); ALT (GPT) 26 IU/L (3-49); AST (GOT) 78 IU/L (2-34); CHLORIDE 93 MEQ/L (99-109); CREATININE 1.2 MG/DL (0.6-1.3); GFR ESTIMATE (CALCULATED) > 59 mL/min/ (58.99-99999); POTASSIUM 4.3 MEQ/L (3.7-5.4); SODIUM 127 MEQ/L (136-147); UREA NITROGEN (BUN) 42 mg/dL (9-23)
[2017-08-28 07:31] LABS: GLUCOSE 119 mg/dL (70-99)
[2017-08-28 15:00] VITALS: BP 115/77
[2017-08-28] MEDS ORDERED: OXYCODONE HCL15 MG PO (15:38)
[2017-08-28] MEDS ORDERED: VENTOLIN HFA18 GM IH (15:38)
[2017-08-28] MEDS ORDERED: LYRICA150 MG PO (15:38)
[2017-08-28] MEDS ORDERED: RANITIDINE HCL150 MG PO (15:38)
[2017-08-28] MEDS ORDERED: XIFAXAN550 MG PO (15:38)
[2017-08-28] MEDS ORDERED: MIDODRINE HCL5 MG PO (15:39)
== END 2017-08-28 18:10 | disposition hospice, home (50) | DRG 641 ==
LOC: EME 11:59 → 5EAST 17:33 → EDOF 17:33 → ENRESERV 17:52 → 5EAST 21:35
PROVIDERS: Emergency Medicine; Family Medicine; Internal Medicine; Internal Medicine Hematology & Oncology; Internal Medicine Nephrology
PROC: 3E0G36Z Introduction of Nutritional Substance into Upper GI, Percutaneous Approach (ICD-10-PCS; principal; 2017-08-19)
DX: E87.1 Hypo-osmolality and hyponatremia (principal); N17.9 Acute kidney failure, unspecified; C78.7 Secondary malignant neoplasm of liver and intrahepatic bile duct; E87.5 Hyperkalemia; E87.6 Hypokalemia; K72.90 Hepatic failure, unspecified without coma; B37.0 Candidal stomatitis; E46 Unspecified protein-calorie malnutrition; R18.0 Malignant ascites; E87.2 Acidosis; R13.10 Dysphagia, unspecified; C78.00 Secondary malignant neoplasm of unspecified lung; C20 Malignant neoplasm of rectum; C78.6 Secondary malignant neoplasm of retroperitoneum and peritoneum; T45.1X5A Adverse effect of antineoplastic and immunosuppressive drugs, initial encounter; K52.9 Noninfective gastroenteritis and colitis, unspecified; I95.9 Hypotension, unspecified; I10 Essential (primary) hypertension; K14.6 Glossodynia; R53.83 Other fatigue; D63.8 Anemia in other chronic diseases classified elsewhere; E86.0 Dehydration; K74.60 Unspecified cirrhosis of liver; R53.1 Weakness; I25.10 Atherosclerotic heart disease of native coronary artery without angina pectoris; E11.9 Type 2 diabetes mellitus without complications; Z86.718 Personal history of other venous thrombosis and embolism; Z92.21 Personal history of antineoplastic chemotherapy; Z51.5 Encounter for palliative care; Z80.42 Family history of malignant neoplasm of prostate; Z93.3 Colostomy status; Z95.1 Presence of aortocoronary bypass graft; Z92.3 Personal history of irradiation; Z86.73 Personal history of transient ischemic attack (TIA), and cerebral infarction without residual deficits; Z84.1 Family history of disorders of kidney and ureter; Z79.4 Long term (current) use of insulin
CPT/HCPCS: 43752; 71046; 71250; 74176; 80048; 80048 91; 80053; 80076; 81003; 82040; 82140; 82436; 82533 91; 82570; 82948; 83605; 83615; 83735; 83935; 84100; 84132 91; 84134; 84300; 84443; 84478; 84550; 84630 90; 85007; 85025; 85610; 85730; 87040; 93005; 94640 76; 94799; 99202; 99281; 99285; A6214; J0610; J0696; J1815; J7030; J7040; J7050; J7512; P9047; S0030